=== PATIENT | male | born 1955 | race Caucasian/White ===

== ENCOUNTER 2020-08-24 06:00 | Day surgery (SDC) | payer MEDICARE, OTHER ==
[2020-08-22 11:17] LABS: BASOPHILS % (AUTO) 1 % (0-1); EOSINOPHILS % (AUTO) 4 % (1-7); LYMPHOCYTES % (AUTO) 8 % (22-44); MD NO; MEAN CORPUSCULAR HEMOGLOBIN 29.3 pg (27.5-34.5); MEAN CORPUSCULAR HGB CONC 33.1 g/dL (33.2-36.2); MEAN PLATELET VOLUME 6.9 fL (7.4-10.4); MONOCYTES % (AUTO) 10 % (2-9); NEUTROPHILS % (AUTO) 78 % (42-75); PLATELET COUNT 278 x10^3/uL (130-400); RED BLOOD COUNT 6.01 x10^6/uL (4.38-5.82); RED CELL DISTRIBUTION WIDTH 19.1 % (9.4-14.8)
[2020-08-22 11:23] LABS: INTERNATIONAL NORMALIZED RATIO 1.08 (0.93-1.1); PROTHROMBIN TIME 11.4 Seconds (9.6-11.5)
[2020-08-22 11:27] LABS: ALANINE AMINOTRANSFERASE 36 U/L (12-78); ALBUMIN 3.5 g/dL (3.4-5.0); ANION GAP 5 mmol/L (5-15); CALCIUM 9.4 mg/dL (8.5-10.1); CHLORIDE 99 mmol/L (98-107)
[2020-08-22 11:29] LABS: ALKALINE PHOSPHATASE 58 U/L (45-117); BILIRUBIN,TOTAL 0.5 mg/dL (0.2-1.0); CREATININE 1.04 mg/dL (0.7-1.3); TOTAL PROTEIN 8.8 g/dL (6.4-8.2)
[~2020-08-24] VITALS: Ht 177.8 cm; Wt 132.5 kg
[~2020-08-24 06:00] MED LIST: AMLO-211 PO; CARV6.252 PO; LOSA1TAB22 PO
[2020-08-24 06:27] VITALS: BP 176/82
[2020-08-24] MEDS ORDERED: CHLORHEXIDINE 15 ML UDC MM ONE (06:30)
[2020-08-24] MEDS ORDERED: LACTATED RINGERS 1,000 ML IV SCH (06:30)
[2020-08-24] MEDS ORDERED: LIDOCAINE-MPF 1%, 2ML INFIL ONE (06:30)
[2020-08-24] MEDS ORDERED: BUPIVACAINE/PF 0.5% ONE (06:45)
[2020-08-24] MEDS ORDERED: EPINEPHRINE 1 MG/ML, 1ML ONE (06:45)
[2020-08-24] MEDS ORDERED: DEXTROSE 50%, 50ML SYRINGE IVPush ONE (07:00)
[2020-08-24] MEDS ORDERED: FENTANYL PF 250 MCG/5ML ONE (07:23)
[2020-08-24] MEDS ORDERED: DEXAMETHASONE 4 MG/ML, 5ML ONE (07:27)
[2020-08-24] MEDS ORDERED: OXYcodone 5 MG/5 ML ORAL.SOL UDC PO PRN (07:30)
[2020-08-24] MEDS ORDERED: hydrALAzine 20 MG/ML, 1ML IV PRN (07:30)
[2020-08-24] MEDS ORDERED: DIPHENHYDRAMINE 50 MG/ML, 1ML IVPush PRN (07:30)
[2020-08-24] MEDS ORDERED: LABETALOL 5MG/ML, 20ML IV PRN (07:30)
[2020-08-24] MEDS ORDERED: HYDROmorphone 1 MG/ML, 1ML INJ IVPush PRN (07:30)
[2020-08-24] MEDS ORDERED: FENTANYL PF 100 MCG/2ML IV PRN (07:30)
[2020-08-24] MEDS ORDERED: PROMETHAZINE 25 MG/ML, 1ML IVPush PRN (07:30)
[2020-08-24] MEDS ORDERED: MEPERIDINE/PF 25MG/0.5ML IVPush PRN (07:30)
[2020-08-24] MEDS ORDERED: HALOPERIDOL 5 MG/ML IV PRN (07:30)
[2020-08-24] MEDS ORDERED: KETOROLAC 30 MG/1 ML ONE (08:40)
[2020-08-24] MEDS ORDERED: GLYCOPYRROLATE 0.2MG/1ML, 5ML ONE (08:41)
[2020-08-24] MEDS ORDERED: CEFAZOLIN 1,000 MG ONE ×2 (08:41)
[2020-08-24] MEDS ORDERED: ROCURONIUM 10MG/ML,5ML ONE (08:41)
[2020-08-24] MEDS ORDERED: NEOSTIGMINE 1 MG/ML, 10ML ONE (08:41)
[2020-08-24] MEDS ORDERED: PROPOFOL 10 MG/ML, 20ML ONE (08:41)
[2020-08-24] MEDS ORDERED: SUCCINYLCHOLINE 20 MG/ML, 10ML ONE (08:41)
[2020-08-24] MEDS ORDERED: ONDANSETRON 2MG/ML, 2ML ONE (08:41)
[2020-08-24] MEDS ORDERED: HYDR-3240 PO (11:00)
== END 2020-08-24 11:40 | disposition home or self-care (01) ==
LOC: OUT 06:00
PROVIDERS: ATTEND Surgery
DX: C43.59 Malignant melanoma of other part of trunk (principal); C77.3 Secondary and unspecified malignant neoplasm of axilla and upper limb lymph nodes; E11.9 Type 2 diabetes mellitus without complications; E78.00 Pure hypercholesterolemia, unspecified; G47.33 Obstructive sleep apnea (adult) (pediatric); I10 Essential (primary) hypertension; F17.210 Nicotine dependence, cigarettes, uncomplicated; E66.01 Morbid (severe) obesity due to excess calories; Z79.899 Other long term (current) drug therapy; Z68.41 Body mass index [BMI] 40.0-44.9, adult; Z72.89 Other problems related to lifestyle; Z20.828 Contact with and (suspected) exposure to other viral communicable diseases
CPT/HCPCS: 14000; 36415; 38525; 80053; 82962; 85025; 85610; 88305; 88307; 93005; J0171; J0330; J0690; J1100; J1885; J2405; J2704; J3010; J7120; U0003; J2710